=== PATIENT | female | born 1955 | race Caucasian/White ===

== ENCOUNTER → 2017-12-28 | Outpatient (CLI) | payer OTHER ==
[~2017-12-28] MED LIST: AMOXICILLIN 50500 M1 PO; ATIVAN0.5 MG PO; CELEXA PO; CELEXA40 MG PO; FISH OIL + D31 EACH PO; HYDROCODON-ACE1 EAC7 PO; KRILL OIL 1,001 EACH PO; LEVOTHYROXIN0.175 MG PO; LEVOXYL112 MCG PO; LEXAPRO 10 MG T10 MG PO; NAPROSYN500 MG PO; PROBIOTIC1 EAC1 PO; PROMETHAZINE/C118 ML PO; THYROID PO; VESICARE10 M1 PO; VITAMIN D1000 UNI1 PO; WELLBUTRIN SR150 MG PO
== END ==
LOC: CAT 13:58
DX: R10.11 Right upper quadrant pain (principal); M47.896 Other spondylosis, lumbar region; I70.0 Atherosclerosis of aorta; M25.78 Osteophyte, vertebrae

== ENCOUNTER → 2017-12-28 | Outpatient (CLI) | payer OTHER | LOC: MRI 13:57 | DX: M47.892 Other spondylosis, cervical region (principal); M48.02 Spinal stenosis, cervical region; M54.2 Cervicalgia; R29.898 Other symptoms and signs involving the musculoskeletal system; R20.0 Anesthesia of skin; R20.2 Paresthesia of skin; V89.2XXS Person injured in unspecified motor-vehicle accident, traffic, sequela ==

== ENCOUNTER → 2019-03-17 | Outpatient (CLI) | payer BC ==
--- NOTE | 2019-03-17 15:40 | 2DMMODE ---
[facility] [place] [address] 2 D/M-MODE ECHOCARDIOGRAM Name: EDMOND TRUJILLO Room #: REG [facility]#: [id number] ������������� Admission: 03/17/19 ������������� Attend Phys: Karla Quintanilla DNP Discharge: ��� ������������� ��� Date of : 55 Date of Service: 03/17/19 1540 �� Report #: [id number] �������� ��������������������������������������������[id number] THIS REPORT FOR: //name// APPROVED REPORT Study performed: 03/17/2019 13:36:33 EXAM: Comprehensive 2D, Doppler, and color-flow Echocardiogram Patient Location: Out-Patient Status: routine BSA: 2.29 HR: 85 bpm BP: 125/83 mmHg Rhythm: NSR Other Information Study Quality: Good Indications Murmur 2D Dimensions RVDd: 30.46 mm IVSd: 11.08 (7-11mm) LVOT Diam: 19.87 (18-24mm) LVDd: 45.89 mm PWd: 10.59 (7-11mm) Ascending Ao: 32.81 (22-36mm) LVDs: 33.39 (25-40mm) Aortic Root: 30.97 mm Volumes Left Atrial Volume (Systole) Single Plane 4CH: 47.48 mL Single Plane 2CH: 54.69 mL LA ESV Index: 23.00 mL/m2 Aortic Valve AoV Peak Sudhakar.: 2.00 m/s AO Peak Gr.: 16.02 mmHg LVOT Max P.98 mmHg AO Mean Gr.: 9.78 mmHg AO V2 Mean: 1.49 m/s LVOT Max V: 1.22 m/s AO V2 VTI: 46.14 cm ADITYA Vmax: 1.89 cm2 Mitral Valve E/A Ratio: 1.1 [facility] [employer] [place] [address] 2 D/M-MODE ECHOCARDIOGRAM Name: EDMOND TRUJILLO Room #: REG [facility]#: [id number] ������������� Admission: 03/17/19 ������������� Attend Phys: Karla Quintanilla DNP Discharge: ��� ������������� ��� Date of : 55 Date of Service: 03/17/19 1540 �� Report #: [id number] �������� ��������������������������������������������[id number] MV Decel. Time: 215.91 ms MV E Max Sudhakar.: 0.91 m/s MV A Sudhakar.: 0.83 m/s MV PHT: 62.61 ms IVRT: 73.82 ms Pulmonary Valve PV Peak Sudhakar.: 1.00 m/s PV Peak Gr.: 4.00 mmHg Pulmonary Vein P Vein S: 0.63 m/s P Vein A: 0.28 m/s P Vein D: 0.55 m/s P Vein A Dur.: 106.1 msec P Vein S/D Ratio: 1.15 Tricuspid Valve TR Peak Sudhakar.: 1.98 m/s RAP Estimate: 5.00 mmHg TR Peak Gr.: 15.71 mmHg PA Pressure: 21.00 mmHg Left Ventricle The left ventricle is normal size. There is normal LV segmental wall motion. Mild basal septal hypertrophy is present. Left ventricular systolic function is normal. LVEF is 60-65%. Right Ventricle The right ventricle is normal size. The right ventricular systolic function is normal. Atria The left atrium size is normal. The right atrium size is normal. Aortic Valve Aortic valve leaflets are mildly thickened and calcified. No aortic regurgitation is present. There is borderline mild valvular aortic stenosis. Calculated aortic valve area is 1.9 cm2 with maximum pressure gradient of 16 mmHg and mean pressure gradient of 10 mmHg. Mitral Valve The mitral valve is normal in structure. Trace mitral regurgitation. Tricuspid Valve The tricuspid valve is normal in structure. Trace tricuspid regurgitation. Estimated PAP is 20-25mmHg. [facility] [address] [place] [address] 2 D/M-MODE ECHOCARDIOGRAM Name: EDMOND TRUJILLO Room #: REG CL [facility]#: [id number] ������������� Admission: 03/17/19 ������������� Attend Phys: Karla Quintanilla DNP Discharge: ��� ������������� ��� Date of : 55 Date of Service: 03/17/19 1540 �� Report #: [id number] �������� ��������������������������������������������[id number] Pulmonic Valve Pulmonic valve is not well visualized. Trace pulmonic regurgitation. Great Vessels The aortic root is normal in size. The ascending aorta is normal in size. IVC is normal in size and collapses >50% with inspiration. Pericardium There is no pericardial effusion. <Conclusion> The left ventricle is normal size. Mild basal septal hypertrophy is present. LVEF is 60-65%. The right ventricle is normal size. The left atrium size is normal. Aortic valve leaflets are mildly thickened and calcified. There is borderline mild valvular aortic stenosis. Calculated aortic valve area is 1.9 cm2 with maximum pressure gradient of 16 mmHg and mean pressure gradient of 10 mmHg. Trace mitral regurgitation. Trace tricuspid regurgitation. Estimated PAP is 20-25mmHg. The aortic root is normal in size. There is no pericardial effusion. ��������������������������������������������� <ELECTRONICALLY SIGNED> ���������������������������������������� By: Jonh Senior MD, FACC ��������������������������������������������� 03/17/19 1540 1540 1540 Jonh Senior MD, FACC /INF
== END ==
LOC: CV 13:18
DX: I35.8 Other nonrheumatic aortic valve disorders (principal)

== ENCOUNTER → 2019-09-25 | Outpatient (CLI) | payer BC | LOC: RAD 15:15 | DX: R05 Cough (principal) ==